=== PATIENT | female | born 1965 | race Caucasian/White ===

== ENCOUNTER 2020-12-25 04:54 | Emergency (ER) | payer OTHER ==
[2020-12-25 05:00] VITALS: BP_SYST 175
[2020-12-25] MEDS ORDERED: DOCU-144 PO (05:31)
[2020-12-25] MEDS ORDERED: BISA10SU61 RC (05:32)
[2020-12-25] MEDS ORDERED: HEPA500015 SUBCUT (05:32)
[2020-12-25] MEDS ORDERED: MOB7.5 PO (05:33)
[2020-12-25] MEDS ORDERED: MULT-1100 PO (05:34)
[2020-12-25] MEDS ORDERED: AMIN30LI2 PO (05:35)
[2020-12-25] MEDS ORDERED: SENN8.6T19 PO (05:37)
[2020-12-25] MEDS ORDERED: TRAM50TA PO (05:42)
[2020-12-25] MEDS ORDERED: ACET325T PO (05:44)
[2020-12-25] MEDS ORDERED: ASCO500T20 PO (05:45)
[2020-12-25] MEDS ORDERED: ZINC50TA69 PO (05:45)
[2020-12-25] MEDS ORDERED: LORazepam 2 MG/ML VIAL IVP ONE (05:45)
[2020-12-25] MEDS ORDERED: ONDA4TAB5 PO (05:47)
--- NOTE | 2020-12-25 06:19 | NUR ---
PATIENT BIB [facility] FOR DIZZINESS. PATIENT STATS SHE WOKE UP TO USE THE BATHROOM AND SHE FELT DIZZY AND HAD NAUSEA. PATIENT WAS SEEN AMBULATING AROUND THE ER WITH STEADY GAIT. PATIENT STATES MOVING HER HEAD AND LOOKING RIGHT TOT LEFT MAKES HER DIZZY. PATIENT IS AXOXS4 AND GCS4 BREATHING IS EVEN AND UNLABORED SKIN IS WARMA ND DRY.
[2020-12-25 06:28] LABS: BASOPHILS % (AUTO) 0.7 % (0.0-2.0); EOSINOPHILS # (AUTO) 0.1 K/uL (0.0-0.4); EOSINOPHILS % (AUTO) 1.5 % (0.0-4.0); HEMATOCRIT 42.2 % (36-48); HEMOGLOBIN 14.5 g/dL (12.0-16.0); LYMPHOCYTES # (AUTO) 2.2 K/uL (1.0-5.5); LYMPHOCYTES % (AUTO) 35.6 % (20.5-51.5); MEAN CORPUSCULAR HEMOGLOBIN 30 pg (27-31); MEAN CORPUSCULAR HGB CONC 34 % (32-36); MEAN CORPUSCULAR VOLUME 87 fL (79.0-98.0); MONOCYTES # (AUTO) 0.4 K/uL (0.0-1.0); MONOCYTES % (AUTO) 6.6 % (1.7-9.3); NEUTROPHILS # (AUTO) 3.5 K/uL (1.8-7.7); NEUTROPHILS % (AUTO) 55.6 % (40.0-70.0); PLATELET COUNT (AUTO) 286 K/uL (130-430); RED BLOOD CELL COUNT(AUTO) 4.85 MIL/uL (4.2-6.2); RED CELL DISTRIBUTION WIDTH 12.6 % (9.0-15.0); WHITE BLOOD COUNT (AUTO) 6.3 K/uL (4.8-10.8)
[2020-12-25] MEDS ORDERED: MECLIZINE HCL 25 MG TABLET (ANITVERT) ONE ×2 (06:29→06:35)
[2020-12-25] MEDS ORDERED: MECLIZINE HCL 25 MG TABLET (ANITVERT) PO ONE (06:30)
[2020-12-25] MEDS ORDERED: NACL 0.9% 1,000 ML IV ONE (06:30)
--- NOTE | 2020-12-25 07:09 | NUR ---
[facility] PT STATES THAT VERTIGO SYMPTOMS ARE SUBSIDING
[2020-12-25 07:17] LABS: CALCIUM 8.9 mg/dL (8.4-11.0); CREATININE 0.83 mg/dL (0.55-1.30); POTASSIUM 3.7 mmol/L (3.5-5.1)
[2020-12-25 07:23] LABS: TOTAL BILIRUBIN 0.5 mg/dL (0.0-1.0)
[2020-12-25 07:45] LABS: BILIRUBIN,URINE NEGATIVE (NEGATIVE); BLOOD, URINE NEGATIVE (NEGATIVE); CLARITY/URINE CLEAR (CLEAR); COLOR,URINE YELLOW (YELLOW); GLUCOSE,URINE NEGATIVE (NEGATIVE); KETONES,URINE NEGATIVE (NEGATIVE); LEUKOCYTE ESTERASE ,URINE TRACE (NEGATIVE); NITRITE, URINE NEGATIVE (NEGATIVE); PROTEIN URINE NEGATIVE (NEGATIVE); UROBILINOGEN,URINE 0.2 (0.2-1.0)
[2020-12-25] MEDS ORDERED: MECL-129 PO (07:59)
[2020-12-25] MEDS ORDERED: MECL-160 PO (09:40)
[2020-12-25 09:42] VITALS: BP_SYST 110
--- NOTE | 2020-12-25 09:44 | NUR ---
Patient given written and verbal discharge instructions and verbalizes understanding. ER MD discussed with patient the results and treatment provided. Patient in stable condition. ID arm band removed. IV catheter removed intact and dressing applied, no active bleeding. Rx of MECLAZINE given. Patient educated on pain management and to follow up with PMD. Pain Scale 0. Opportunity for questions provided and answered. Medication side effect fact sheet provided.
== END 2020-12-25 09:44 | disposition home or self-care (01) ==
LOC: SED 04:54
DX: R42 Dizziness and giddiness (principal); Z88.0 Allergy status to penicillin; Z79.899 Other long term (current) drug therapy
CPT/HCPCS: 36415; 80053; 81003; 81025; 85025; 96361; 96374; 99285; J2060; J7030; J8597